=== PATIENT | female | born 1950 | race Caucasian/White ===

== ENCOUNTER 2019-03-08 05:26 | Day surgery (SDC) | payer MEDICARE ==
[2019-03-04 10:50] LABS: BASOPHILS # (AUTO) 0.1 X10'3 (0-0.2); BASOPHILS % (AUTO) 1.1 % (0-1); EOSINOPHILS # (AUTO) 0.1 X10'3 (0-0.9); EOSINOPHILS % (AUTO) 1.7 % (0-6); LYMPHOCYTES # (AUTO) 2.6 X10'3 (1.1-4.8); LYMPHOCYTES % (AUTO) 34.6 % (21-51); MEAN CORPUSCULAR HEMOGLOBIN 29.2 PG (27.0-31.0); MEAN CORPUSCULAR HGB CONC 33.6 g/dL (33.0-36.5); MEAN CORPUSCULAR VOLUME 86.9 FL (78-98); MEAN PLATELET VOLUME 9.1 FL (7.4-10.4); MONOCYTES # (AUTO) 0.4 X10'3 (0-0.9); MONOCYTES % (AUTO) 5.4 % (2-12); NEUTROPHILS # (AUTO) 4.3 X10'3 (1.8-7.7); NEUTROPHILS % (AUTO) 57.2 % (42-75); PRE OP HEMATOCRIT 37.6 % (35.0-45.0); PRE OP HEMOGLOBIN 12.6 g/dL (12.0-16.0); PRE OP PLATELET COUNT 253 X10'3 (140-440); RED BLOOD COUNT 4.32 X10'6 (4.20-5.60); RED CELL DISTRIBUTION WIDTH 13.7 % (11.5-14.5)
[2019-03-04 11:14] LABS: BLOOD UREA NITROGEN 10 MG/DL (7-18); BUN/CREATININE RATIO 12.7 (6.6-38.0); CHLORIDE 105 MMOL/L (99-107); CREATININE 0.79 MG/DL (0.40-0.90); PRE OP ANION GAP 3 (8-16); PRE OP POTASSIUM 4.6 MMOL/L (3.4-5.1); PRE OP SODIUM 140 MMOL/L (135-145); TOTAL CARBON DIOXIDE 31.6 MMOL/L (24-32)
[2019-03-04 11:15] LABS: ALBUMIN 3.5 G/DL (3.4-5.0); ALKALINE PHOSPHATASE 56 IU/L (46-116); CALCIUM 8.8 MG/DL (8.5-10.1); PRE OP ALT 24 U/L (30-65); PRE OP AST 17 U/L (10-37); PRE OP BILIRUB, TOTAL 0.3 MG/DL (0.0-1.0); eGFR 73 ML/MIN
[2019-03-04 11:16] LABS: PRE OP GLUCOSE 224 MG/DL (70-104)
[~2019-03-08] VITALS: Ht 160 cm; Wt 90.7 kg
[2019-03-08] VITALS (8 sets, daily range): BP systolic 129–155; BP diastolic 56–79
[~2019-03-08 05:26] MED LIST: ASCO500C15 PO; ASPI-974 PO; CALC-1197 PO; CHOL400T14 PO; FAMO20TA8 PO; GLIM1TAB PO; GLUCOSAMINE/MSM PO; LACT1CAP65 PO; LEVO25TA2 PO; LISI-604 PO; METF-438 PO; OMEG-166 PO; OMEP20TA5 PO; ringers solution, lacted 1,000 ML IV SCH
[2019-03-08] MEDS ORDERED: famotidine 10mg tablet PO ONE (05:30)
[2019-03-08] MEDS ORDERED: LIDOcaine 1% (10mg/ml) 2ml vial ONE (05:59)
[2019-03-08] MEDS ORDERED: propofol inj 20 ML IV ONE (07:21)
[2019-03-08] MEDS ORDERED: fentaNYL/PF 50MCG/1 ML 2ML syringe ONE (07:22)
[2019-03-08] MEDS ORDERED: midazolam 2 mg/2 ml injection ONE (07:22)
[2019-03-08] MEDS ORDERED: sevoflurane 250ml liquid IH ONE (07:30)
[2019-03-08] MEDS ORDERED: ringers solution, lacted 1,000 ML IV SCH (07:32)
[2019-03-08] MEDS ORDERED: proCHLORperazine 10 MG/2 ml inj IV PRN (07:35)
[2019-03-08] MEDS ORDERED: meperidine/PF 25mg/ml syringe IV PRN ×3 (07:35)
[2019-03-08] MEDS ORDERED: ketorolac trometh. 30mg/ml inj. IV ONE (07:35)
[2019-03-08] MEDS ORDERED: ondansetron/PF 4mg/2ml inj IV PRN (07:35)
[2019-03-08] MEDS ORDERED: dexamethasone sod phosphate 4mg/ml inj. ONE (08:28)
[2019-03-08] MEDS ORDERED: ondansetron/PF 4mg/2ml inj ONE (08:28)
--- NOTE | 2019-03-08 08:30 | NUR ---
Received from OR via [facility] , accompanied by Anesthesiologist MOMO and report given by Anesthesiolgist. PATIENT WITH SALMA PAD IN PLACE. CDI. VSS. LMA REMOVED SHORTLY AFTER ARRIVAL . PATIENT WITH 10L MASK ON WITH `100% SATURATIONS. Addendum: 03/08/19 at 0850 by Elver Chavis RN, RN Amended: Links added.
[2019-03-08] MEDS ORDERED: oxyCODONE/APAP 5-325mg tablet PO ONE (08:35)
--- NOTE | 2019-03-08 09:40 | NUR ---
ALL DC CRITERIA FOR DC HAS BEEN MET. SPOUSE PRESENT TO DRESS PATIENT AND HEAR DC INSTRUCTIONS. ALL QUESTIONS ANSWERED. VSS. VOIDED. AMBULATED. PATIENT DENIES PAIN. OUT VIA WHEELCHAIR TO PERSONAL VEHICLE. Addendum: 03/08/19 at 0958 by Elver Chavis RN, RN Amended: Links added.
== END 2019-03-08 09:40 | disposition home or self-care (01) ==
LOC: PAS 05:26
PROVIDERS: ATTEND Obstetrics & Gynecology
DX: N95.0 Postmenopausal bleeding (principal); N84.0 Polyp of corpus uteri; E11.9 Type 2 diabetes mellitus without complications; K21.9 Gastro-esophageal reflux disease without esophagitis; E66.9 Obesity, unspecified; Z68.35 Body mass index [BMI] 35.0-35.9, adult; Z90.49 Acquired absence of other specified parts of digestive tract; Z98.890 Other specified postprocedural states; Z89.511 Acquired absence of right leg below knee; Z79.82 Long term (current) use of aspirin; Z79.899 Other long term (current) drug therapy
CPT/HCPCS: 36415; 58558; 80053; 82948; 85025; J1100; J2001; J2250; J2405; J2704; J3010; J7030; J7120; 93005; A4355; A4618; A6258

== ENCOUNTER 2022-01-05 06:12 | Day surgery (SDC) | payer MEDICARE ==
[2022-01-04 12:40] LABS: ALBUMIN 3.6 G/DL (3.4-5.0); ANION GAP 5 (8-16); BLOOD UREA NITROGEN 15 MG/DL (7-18); BUN/CREATININE RATIO 20.8 (6.6-38.0); CALCIUM 9.2 MG/DL (8.5-10.1); CHLORIDE 105 MMOL/L (99-107); CREATININE 0.72 MG/DL (0.40-0.90); GLUCOSE 107 MG/DL (70-104); POTASSIUM 4.3 MMOL/L (3.5-5.1); SODIUM 141 MMOL/L (135-145); TOTAL CARBON DIOXIDE 31.4 MMOL/L (24-32); eGFR 80 ML/MIN
[2022-01-04 12:44] LABS: APTT 27 SECONDS (22-32); BASOPHILS # (AUTO) 0.1 X10'3 (0-0.2); BASOPHILS % (AUTO) 1.3 % (0-1); EOSINOPHILS # (AUTO) 0.2 X10'3 (0-0.9); EOSINOPHILS % (AUTO) 2.3 % (0-6); HEMATOCRIT 37.6 % (35.0-45.0); HEMOGLOBIN 12.5 g/dl (12.0-16.0); LYMPHOCYTES # (AUTO) 2.6 X10'3 (1.1-4.8); LYMPHOCYTES % (AUTO) 38.6 % (21-51); MEAN CORPUSCULAR HEMOGLOBIN 30.4 PG (27.0-31.0); MEAN CORPUSCULAR HGB CONC 33.2 g/dL (33.0-36.5); MEAN CORPUSCULAR VOLUME 91.7 FL (78-98); MEAN PLATELET VOLUME 10.4 FL (7.4-10.4); MONOCYTES # (AUTO) 0.4 X10'3 (0-0.9); MONOCYTES % (AUTO) 6.5 % (2-12); NEUTROPHILS # (AUTO) 3.4 X10'3 (1.8-7.7); NEUTROPHILS % (AUTO) 51.3 % (42-75); PLATELET COUNT 204 X10'3 (140-440); RED CELL DISTRIBUTION WIDTH 13.4 % (11.5-14.5); WHITE BLOOD COUNT 6.7 X10'3 (4.5-11.0)
[2022-01-05] VITALS (11 sets, daily range): BP systolic 128–141; BP diastolic 45–77
[~2022-01-05] VITALS: Ht 160 cm; Wt 80.1 kg
[~2022-01-05 06:12] MED LIST changes: -ASCO500C15 PO; +ASCO500C18 PO; -CALC-1197 PO; +CALC-1215 PO; -LISI-604 PO; +LISI5TAB22 PO; +OMEP20TA43 PO; -OMEP20TA5 PO; -ringers solution, lacted 1,000 ML IV SCH
[2022-01-05] MEDS ORDERED: normal saline 1000ml 1,000 ML IV SCH (06:32)
[2022-01-05] MEDS ORDERED: ceFAZolin inj. 2,000 MG in dextrose 5%-water 100 ML IV ONE (06:32)
[2022-01-05] MEDS ORDERED: LISI20TA28 PO (07:06)
[2022-01-05] MEDS ORDERED: ASPI-1265 PO (07:06)
[2022-01-05] MEDS ORDERED: FAMO40TA58 PO (07:06)
[2022-01-05] MEDS ORDERED: LEVO100T PO (07:10)
[2022-01-05] MEDS ORDERED: LOSA25TA41 PO (07:10)
[2022-01-05] MEDS ORDERED: ALBU8HFA PO (07:14)
[2022-01-05] MEDS ORDERED: midazolam 1 mg/ML 2ml injection ONE ×2 (07:22→08:50)
[2022-01-05] MEDS ORDERED: LIDOCAINE 1%/EPI 1:100,000 inj. 10 ML multi-dose vial ONE ×2 (07:23→08:42)
[2022-01-05] MEDS ORDERED: fentaNYL/PF 50MCG/1 ML 2ML syringe ONE ×2 (07:23→08:51)
[2022-01-05] MEDS ORDERED: ceFAZolin 1000mg inj ONE (07:23)
[2022-01-05] MEDS ORDERED: normal saline 1000ml 400 ML IV SCH (10:43)
[2022-01-05] MEDS ORDERED: vancomycin/NS 1 GM in NS 250 ML IV ONE (10:43)
[2022-01-05] MEDS ORDERED: HYDROcodone/acetaminophen 10/325mg tab PO PRN (10:45)
[2022-01-05] MEDS ORDERED: HYDROcodone/acetaminophen 5mg/325mg tablet PO PRN (10:45)
== END 2022-01-05 15:10 | disposition home or self-care (01) ==
LOC: SSTAY O 06:12
PROVIDERS: ATTEND Internal Medicine Cardiovascular Disease
DX: I49.5 Sick sinus syndrome (principal); I10 Essential (primary) hypertension; E11.9 Type 2 diabetes mellitus without complications; E66.9 Obesity, unspecified; K21.9 Gastro-esophageal reflux disease without esophagitis; E03.9 Hypothyroidism, unspecified; Z79.899 Other long term (current) drug therapy; Z79.01 Long term (current) use of anticoagulants; Z79.82 Long term (current) use of aspirin; Z98.890 Other specified postprocedural states; Z96.653 Presence of artificial knee joint, bilateral; Z82.49 Family history of ischemic heart disease and other diseases of the circulatory system; Z83.3 Family history of diabetes mellitus
CPT/HCPCS: 33208; 36415; 71046; 80048; 82948; 85025; 85610; 85730; 93005; 99152; 99153; C1785; C1894; C1898; J0690; J2250; J3010; J3370; J3490; J7030; A4565; A4620; A6258; A6449

== ENCOUNTER 2025-02-12 07:30 | Day surgery (SDC) | payer MEDICARE, OTHER ==
[2025-02-11 11:58] LABS: CREATININE 0.69 MG/DL (0.40-0.90); TOTAL CARBON DIOXIDE 31.4 MMOL/L (24-32); eGFR 84 ML/MIN
[2025-02-11 12:02] LABS: APTT 25 SECONDS (22-32); INR 1.0 INR
[2025-02-11 12:05] LABS: MEAN PLATELET VOLUME 9.8 FL (7.4-10.4); RED CELL DISTRIBUTION WIDTH 13.6 % (11.5-14.5)
[~2025-02-12] VITALS: Ht 160 cm; Wt 89.4 kg
[2025-02-12] VITALS (11 sets, daily range): BP systolic 127–146; BP diastolic 53–66; PULSE 60–66; RESP 13–20; TEMP 97.9; O2SAT 66–99
[~2025-02-12 07:30] MED LIST changes: +ALBU8HFA PO; +ASPI-1265 PO; -ASPI-974 PO; -FAMO20TA8 PO; +FAMO40TA58 PO; -GLIM1TAB PO; +LEVO100T PO; -LEVO25TA2 PO; +LISI20TA28 PO; -LISI5TAB22 PO; +LOSA25TA41 PO; -METF-438 PO; -OMEP20TA43 PO
--- NOTE | 2025-02-12 07:56 | ELECTROCARDIOGRAPH REPORT ---
[facility] Test Date: 2025-02-12 Test Time: 07:55:06 Pat Name: RONI LUJAN Department: [facility] Patient ID: [facility]-[id number] Room: Gender: F Construction Field Engineer: JAMAL : 1950 Requested By: SANDRO BRENNAN Order Number: [id number] Reading MD: Dr. FLIP Brennan Measurements Intervals [place] Rate: 60 P: 58 NH: 178 QRS: -18 QRSD: 132 T: 6 QT: 421 QTc: 421 Interpretive Statements Sinus rhythm Multiple ventricular premature complexes Right bundle branch block Electronically Signed On 02-12-2025 17:06:[address] FLIP Brennan Please click the below link to view image of tracing.
[2025-02-12] MEDS ORDERED: ROSU20TA98 PO (08:20)
[2025-02-12] MEDS ORDERED: MAGN400T56 PO (08:20)
[2025-02-12] MEDS ORDERED: MULT-227 PO (08:20)
[2025-02-12] MEDS ORDERED: BUSP5TAB3 PO (08:20)
[2025-02-12] MEDS ORDERED: METF-900 PO (08:20)
[2025-02-12] MEDS ORDERED: CARV3.122 PO ×2 (08:20)
[2025-02-12] MEDS ORDERED: VITA1TAB55 PO (08:22)
[2025-02-12] MEDS ORDERED: VITE400C PO (08:22)
[2025-02-12] MEDS ORDERED: verapamil 2.5 mg/ml inj IV ONE (10:54)
[2025-02-12] MEDS ORDERED: heparin 1,000unit/ml 10ml vial 10 ML ONE (10:54)
[2025-02-12] MEDS ORDERED: iohexol 350 MG/ML 50ML vial IV ONE (10:54)
[2025-02-12] MEDS ORDERED: LIDOcaine 1% (10mg/ml) 2ml vial ONE (10:54)
[2025-02-12] MEDS ORDERED: fentaNYL/PF 50MCG/1 ML 2ML syringe ONE (10:54)
[2025-02-12] MEDS ORDERED: midazolam 1 mg/ML 2ml injection ONE (10:54)
[2025-02-12] MEDS ORDERED: nitroGLYCERIN 500mcg/5mL D5W 5 ML IV ONE (10:56)
[2025-02-12] MEDS ORDERED: normal saline 1000ml 1,000 ML IV ONE (12:10)
--- NOTE | 2025-02-12 13:03 | CARDIOLOGY REPORT ---
DATE OF SERVICE: 02/12/2025 DICTATING PHYSICIAN: FLIP Malone MD CARDIAC CATHETERIZATION GENDER: Female AGE: 74 years HEIGHT: 160 cm WEIGHT: 89 kg BODY SURFACE AREA: 1.92 m2 PRIMARY PHYSICIAN: SIMIN Styles PATTERN GRADER SUPERVISOR: FLIP Malone MD INDICATION: The patient is a 74-year-old postmenopausal female with diabetes, hypertension, hyperlipidemia, sick sinus syndrome, status post PPM with exertional fatigue and shortness of breath. The patient had a myocardial perfusion scan back in 12/2024, which was negative for ischemia, but the patient continues to have ongoing episodes of chest pain and shortness of breath, some with exertion. In view of her progressive symptoms, the patient prefers to have a definitive coronary angiography. Risks, benefits, and alternative options were discussed. Informed consent obtained. Other comorbidities include GERD, mild asthma, seasonal allergies, and hypothyroidism. DESCRIPTION OF PROCEDURE: The patient underwent a left heart catheterization with right radial approach with 6-[place]i right radial sheath. Post procedure access site hemostasis secured with right radial band. The patient tolerated the procedure well. COMPLICATIONS: None. PROCEDURE: Ultrasound-guided right radial artery visualization and access. HEMODYNAMICS: Aortic systolic 145, diastolic 60, mean 74 mmHg. LVEDP of 20 mmHg. No significant gradient across the aortic valve. LEFT VENTRICULOGRAM: Overall left ventricular systolic function is normal with LV ejection fraction 65%. CORONARY CINEANGIOGRAPHY: Left main coronary artery engaged with JL4 catheter from right radial approach. Large caliber with mild irregularities. LAD is a medium caliber vessel, arising at the bifurcation of left main coronary artery, courses through the anterior interventricular groove and by wrapping around the apex. LAD has areas of 20% narrowing in the proximal and mid portion. Diagonal 1 is very small. Diagonal 2 is a 2.25 mm caliber vessel with minimal luminal irregularities. Circumflex artery is a dominant vessel, arising at the bifurcation of left main coronary artery, continues as the PDA. OM1 is very small. OM2 is a 2.25 mm caliber vessel with mild luminal irregularities and OM3 is a 2.25 mm vessel with minimal irregularities. After that, it continues as the PDA, which proximally has about 50% narrowing. RCA is a small nondominant vessel of 2 mm in diameter, ends after the RV marginal branch. IMPRESSION: * A 74-year-old female with left ventricular ejection fraction of 65%. * Left ventricular end-diastolic pressure of 20 mmHg with no significant gradient across the aortic valve. * Left main is normal. Left anterior descending with areas of 20% narrowing. Circumflex is dominant. Proximal posterior descending artery has 50% narrowing. Nondominant right coronary artery with mild luminal irregularity. RECOMMENDATIONS: Recommend continued aggressive coronary risk factor modification, namely low-fat, low-cholesterol diet, maintaining ideal body weight, keeping LDL less than 55 mg/dL, hemoglobin A1c less than 7%, and systolic blood pressure less than 130 mmHg. FLIP Malone MD TID: [id number] RECEIPT: [id number] /[facility] [place] cc: Estefani SIMIN
== END 2025-02-12 16:30 | disposition home or self-care (01) ==
LOC: SSTAY O 07:30
PROVIDERS: ATTEND Internal Medicine Cardiovascular Disease
DX: R07.89 Other chest pain (principal); R53.83 Other fatigue; R06.00 Dyspnea, unspecified; I49.5 Sick sinus syndrome; I10 Essential (primary) hypertension; I25.10 Atherosclerotic heart disease of native coronary artery without angina pectoris; E78.5 Hyperlipidemia, unspecified; E03.9 Hypothyroidism, unspecified; E11.9 Type 2 diabetes mellitus without complications; K21.9 Gastro-esophageal reflux disease without esophagitis; J45.909 Unspecified asthma, uncomplicated; I45.10 Unspecified right bundle-branch block; R00.2 Palpitations; Z90.89 Acquired absence of other organs; Z79.82 Long term (current) use of aspirin; Z79.899 Other long term (current) drug therapy; Z98.890 Other specified postprocedural states; Z96.653 Presence of artificial knee joint, bilateral; Z83.3 Family history of diabetes mellitus; Z82.49 Family history of ischemic heart disease and other diseases of the circulatory system; Z80.9 Family history of malignant neoplasm, unspecified; Z95.0 Presence of cardiac pacemaker
CPT/HCPCS: 36415; 80048; 85025; 85610; 85730; 93005; 93458; 99152; A6258; A6402; C1725; C1894; J1644; J2003; J2250; J3010; J3490; J7030; Q0163; Q9967; Z7610; 76937; 99153; A6449